=== PATIENT | female | born 1940 | race Caucasian/White ===

== ENCOUNTER 2018-11-15 09:00 | Day surgery (SDC) | payer MEDICARE, OTHER ==
[2018-11-15] MEDS ORDERED: PROPOFOL 200 MG INJ (10:45)
[2018-11-15] MEDS ORDERED: LIDOCAINE 100 MG SYRINGE (10:48)
[2018-11-15] MEDS ORDERED: PROPOFOL 20 ML (10:48)
== END 2018-11-15 13:41 | disposition home or self-care (01) ==
LOC: GIL 09:00
DX: R19.4 Change in bowel habit (principal); K64.8 Other hemorrhoids
CPT/HCPCS: 45378